=== PATIENT | female | born 1955 | race Caucasian/White ===

== ENCOUNTER 2024-05-16 20:29 | Inpatient (IN) | payer OTHER, MEDICAID ==
[~2024-05-16] VITALS: Ht 175.3 cm; Wt 101.0 kg
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
--- NOTE | 2024-05-17 00:08 | DVH ---
EXAM: CT LS SPINE WO CONTRAST HISTORY: FALL COMPARISON: None CTDIvol 39 mGy, DLP 1282 mGy*cm. TECHNIQUE: Multiple axial CT images of the spine were obtained using bone algorithm. Axial and coron al reformatting was done. Bone and soft tissue windows were reviewed. FINDINGS: Acute compression fracture of the L1 vertebral body. The visualized paraspinal soft tissues are gross ly unremarkable. Multilevel degenerative spondylosis manifesting as varying degrees of disc space narrowing, endplate sclerosis, and marginal osteophyte formation which is most prominent at the levels of L2-L3 and L4-L5 where it is moderate to severe. IMPRESSION: 1. Acute compression fracture of the L1 vertebral body. 2. Multilevel degenerative spondylosis, moderate to severe at L2-L3 and L4-L5
[2024-05-17 01:53] VITALS: PULSE 74; RESP 18; O2SAT 98
[2024-05-17] MEDS: ONDANSETRON HCL 4 MG/2 ML VIAL IV ONE (02:07)
[2024-05-17] MEDS: MORPHINE SULFATE 4 MG/ML SYR/VIAL IV ONE (02:08)
[2024-05-17 02:22] VITALS: PULSE 75; RESP 18; O2SAT 98
[2024-05-17 04:03] LABS: Urine Bacteria None Seen /hpf (None Seen)
[2024-05-17 04:20] LABS: Urine Blood Negative /uL (Negative); Urine Clarity Clear (Clear); Urine Color Light-Yellow (Yellow); Urine Protein, UAD Negative (Negative); Urine Squamous Epithelial Cell None Seen /hpf (<5); Urine Urobilinogen Normal (Negative); Urine WBC < 1 /HPF (0-5)
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
[2024-05-17 07:51] LABS: Basophils # (auto) 0 10 ^3/uL (0-0.2); Basophils % (auto) 0.3 % (0.0-2.0); Eosinophils # (auto) 0.1 10 ^3/uL (0-0.8); Eosinophils % (auto) 1.7 % (0.0-7.0); Hematocrit 40.1 % (36.0-46.0); Hemoglobin 13.5 g/dL (12.2-16.2); Lymphocytes # (auto) 1.2 10 ^3/uL (0.4-5.4); Lymphocytes % (auto) 17.4 % (10.0-50.0); Mean Corpuscular Hgb Conc. 33.5 g/dL (32.0-36.0); Mean Corpuscular Volume 89.5 fL (80.0-100.0); Monocytes # (auto) 0.6 10 ^3/uL (0-1.3); Neutrophils % (auto) 71.6 % (37.0-80.0); Nucleated Red Blood Cells % 0.1 %; Platelet Count (auto) 220 10^3/uL (140-450); Red Blood Cells 4.48 10^6/uL (4.0-5.20); Red Cell Distribution Width 13.9 % (11.8-14.3); White Blood Cell 6.9 10^3/uL (4.4-10.8)
[2024-05-17 08:19] VITALS: PULSE 74; RESP 13; O2SAT 93
[2024-05-17] MEDS: ENOXAPARIN SOD 30 MG/0.3 ML SYRINGE SC SCH ×2 (08:40→10:52)
[2024-05-17] MEDS: ONDANSETRON HCL 4 MG/2 ML VIAL IV PRN (08:46)
[2024-05-17] MEDS: SODIUM CHLORIDE 0.9% 1,000 ML IV SCH (08:46)
[2024-05-17] MEDS: MORPHINE SULFATE INJ 2 MG/ml SYRG IV PRN (08:48)
[2024-05-17 09:08] LABS: Alanine Aminotransferase 26 U/L (7-40); Alkaline Phosphatase 83 U/L (46-116); Calcium 9.4 mg/dL (8.7-10.4); Carbon Dioxide 26 mmol/L (20-31)
[2024-05-17 09:09] LABS: Albumin 3.9 g/dL (3.2-4.8); Anion Gap 8 (5-15); Aspartate Aminotransferase 23 U/L (13-40); BUN/Creatinine Ratio 17.1 (10.0-20.0); Blood Urea Nitrogen 14 mg/dL (9-23); Potassium 4.2 mmol/L (3.5-5.1); Sodium 141 mmol/L (136-145)
[2024-05-17 09:10] LABS: Total Protein 5.7 g/dL (5.7-8.2)
[2024-05-17 09:11] LABS: Chloride 107 mmol/L (98-107); Glucose 114 mg/dL (74-106)
[2024-05-17 09:26] LABS: Bilirubin, Total 0.9 mg/dL (0.2-1.0)
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
[2024-05-17] MEDS ORDERED: BUPR150T18 (18:36)
[2024-05-17] MEDS ORDERED: LOS25T (18:36)
[2024-05-17] MEDS ORDERED: DULO1CAP6 (18:36)
[2024-05-17] MEDS ORDERED: SIMV20TA20 (18:36)
[2024-05-17] MEDS ORDERED: ATEN50TA PO (18:36)
[2024-05-17] MEDS ORDERED: TRAZ-227 PO (18:36)
[2024-05-17 18:40] VITALS: BP 141/59; PULSE 77; RESP 94; TEMP 98.9; O2SAT 93
[2024-05-17 20:00] VITALS: PULSE 95; RESP 18; O2SAT 95
[2024-05-17 21:00] VITALS: BP 138/60; PULSE 79; RESP 20; TEMP 98.8; O2SAT 96
[2024-05-17] MEDS: ACETAMINOPHEN 325 MG TAB PO PRN (23:18)
[2024-05-18] VITALS (8 sets, daily range): BP systolic 129–175; BP diastolic 55–83; PULSE 63–72; RESP 18–20; TEMP 98.1–98.7; O2SAT 94–96
[2024-05-18 07:11] LABS: Basophils # (auto) 0 10 ^3/uL (0-0.2); Basophils % (auto) 0.3 % (0.0-2.0); Eosinophils # (auto) 0.1 10 ^3/uL (0-0.8); Eosinophils % (auto) 1.6 % (0.0-7.0); Hemoglobin 13.4 g/dL (12.2-16.2); Lymphocytes # (auto) 1.1 10 ^3/uL (0.4-5.4); Lymphocytes % (auto) 12.3 % (10.0-50.0); Mean Corpuscular Hemoglobin 30.5 pg (28.0-32.0); Mean Corpuscular Hgb Conc. 33.5 g/dL (32.0-36.0); Mean Corpuscular Volume 91.2 fL (80.0-100.0); Monocytes # (auto) 0.8 10 ^3/uL (0-1.3); Monocytes % (auto) 8.3 % (0.0-12.0); Neutrophils # (auto) 7.1 10 ^3/uL (1.6-8.6); Neutrophils % (auto) 77.5 % (37.0-80.0); Nucleated Red Blood Cells % 0.1 %; Platelet Count (auto) 191 10^3/uL (140-450); Red Blood Cells 4.39 10^6/uL (4.0-5.20); Red Cell Distribution Width 13.9 % (11.8-14.3); White Blood Cell 9.1 10^3/uL (4.4-10.8)
[2024-05-18 07:18] LABS: Alanine Aminotransferase 21 U/L (7-40); Albumin 3.9 g/dL (3.2-4.8); Alkaline Phosphatase 70 U/L (46-116); Anion Gap 8 (5-15); Aspartate Aminotransferase 21 U/L (13-40); Blood Urea Nitrogen 12 mg/dL (9-23); Calcium 9.5 mg/dL (8.7-10.4); Carbon Dioxide 29 mmol/L (20-31); Chloride 104 mmol/L (98-107); Glucose 99 mg/dL (74-106); Potassium 4.4 mmol/L (3.5-5.1); Sodium 141 mmol/L (136-145)
[2024-05-18 07:19] LABS: Total Protein 5.8 g/dL (5.7-8.2)
[2024-05-18] MEDS: HYDROcodone-ACET 5/325MG TAB PO PRN (11:47)
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
[2024-05-19] VITALS (8 sets, daily range): BP systolic 123–151; BP diastolic 63–73; PULSE 64–77; RESP 18–19; TEMP 97.8–98.7; O2SAT 92–96
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
[2024-05-20] VITALS (8 sets, daily range): BP systolic 130–155; BP diastolic 63–96; PULSE 63–82; RESP 16–20; TEMP 98–99.1; O2SAT 93–95
[2024-05-20] MEDS: OXYCODONE W/ ACETAMINOPHEN 5/325MG TABLET PO PRN (21:25)
[2024-05-21] VITALS (7 sets, daily range): BP systolic 54–154; BP diastolic 74–87; PULSE 60–74; RESP 16–20; TEMP 98–98.7; O2SAT 92–95
--- NOTE | 2024-05-21 14:27 | DVHPN2 ---
Subjective Still complains of back pain She worked with Physical therapy somewhat Reviewed: Care Plan Changes from previous H/P or p: Changes General: Per HPI Eyes: No Pain, No Vision change, No Conjunctivae inflammation, No Eyelid inflammation, No Other, No Redness ENT: No Ear pain, No Ear discharge, No Nose pain, No Nose discharge, No Nose congestion, No Mouth pain, No Mouth swelling, No Throat pain, No Throat swelling, No Other Cardiovascular: No Chest Pain, No Palpitations, No Orthopnea, No Paroxysmal Noc. Dyspnea, No Edema, No Lt Headedness, No Other Respiratory: No Cough, No Dry, No Shortness of breath, No SOB with excertion, No Wheezing, No Hemoptysis, No Pleuritic Pain, No Sputum, No Other Gastrointestinal: No Nausea, No Vomiting, No Abdominal Pain, No Diarrhea, No Constipation, No Melena, No Hematochezia, No Other Genitourinary: No Dysuria, No Frequency, No Incontinence, No Hematuria, No Retention, No Other Musculoskeletal: No other, No neck pain, No shoulder pain, No arm pain; back pain; No hand pain, No leg pain, No foot pain Skin: No Rash, No Lesions, No Jaundice, No Bruising, No Other Objective Vitals Vital Signs Date Time Temp Pulse Resp B/P (MAP) Pulse Ox O2 Delivery O2 Flow Rate FiO2 05/21/24 13:00 98.2 60 16 126/80 (95) 92 98.2 05/21/24 08:00 Nasal Cannula* 2 28 Intake/Output Intake and Output 05/21/24 07:00 Intake Total 1910 ml Output Total 2200 ml Balance -290 ml Intake Oral 1910 ml Output Urine Total 2200 ml Stool Total 0 ml General Appearance: Alert, Oriented X3, Cooperative HEENT: Atraumatic Cardiovascular: Regular rate, Normal S1, Normal S2 Abdomen: Normal bowel sounds, Soft Neuro: Normal speech Medications Current Medications Medications Dose Ordered Sig/Sid Route Start Time Stop Time Status Last Admin Dose Admin Sodium Chloride 1,000 ml @ 70 mls/hr [id number] IV 05/17/24 07:30 05/21/24 11:02 70 MLS/HR Acetaminophen/ Hydrocodone Bitart 1 tab Q4HP PRN PO 05/17/24 07:30 05/21/24 09:39 1 TAB Ondansetron HCl 4 mg Q4HP PRN IV 05/17/24 07:30 05/17/24 08:46 4 MG Acetaminophen 650 mg Q6HP PRN PO 05/17/24 07:30 05/19/24 17:55 650 MG Morphine Sulfate 2 mg Q4HPRN PRN IV 05/17/24 07:30 05/19/24 15:52 2 MG Enoxaparin Sodium 30 mg DAILY@1100 SC 05/17/24 11:00 05/21/24 11:00 30 MG Oxycodone/ Acetaminophen 2 tab Q6HP PRN PO 05/20/24 15:45 05/21/24 06:27 2 TAB Laboratory Results Laboratory Tests 05/18/24 04:47 Urinalysis Test 05/17/24 03:00 Urine Color Light-yellow (Yellow) Urine Clarity Clear (Clear) Urine pH 6.0 (5.0-9.0) Urine Specific [place] 1.010 (1.001-1.035) Urine Protein Negative (Negative) Urine Ketones Negative (Negative) Urine Blood Negative /uL (Negative) Urine Nitrite Negative (Negative) Urine Bilirubin Negative (Negative) Urine Urobilinogen Normal mg/dL (Negative) Urine Leukocyte Esterase Negative /uL (Negative) Urine RBC 3 /hpf (0 - 4) Urine Microscopic WBC < 1 /HPF (0-5) Urine Squamous Epithelial Cells None seen /hpf (<5) Urine Bacteria None seen /hpf (None Seen) Urine Glucose Normal mg/dL (Normal) Assessment/Plan Assessment/Plan Acute compression fracture of the L1 due to a fall Hypertension Mixed hyperlipidemia Degenerative joint disease of the lumbar spine Obesity Plan Continue pain management Continue physical therapy Use the brace with activity Discharge planning Order home health in a front wheel walker Discontinue the IV fluids Monitor closely Full code Plan of care was discussed for 17 minutes Plan discussed with: Patient Date of Service: May 21, 2024 Billing Provider: ALICJA TREVINO MD Common Visit Codes: [id number] INP/OBS CARE(HIGH) Secondary Visit Codes: [id number] CARE PLAN 30 MINUTES ALICJA TREVINO MD May 21, 2024 14:27
[2024-05-22] VITALS (7 sets, daily range): BP systolic 134–158; BP diastolic 71–86; PULSE 64–79; RESP 16–19; TEMP 97.4–98.6; O2SAT 90–96
--- NOTE | 2024-05-22 11:04 | DVHPN2 ---
Subjective Complains of severe back pain limiting her movement and activities Reviewed: Care Plan Changes from previous H/P or p: Changes General: Per HPI Eyes: No Pain, No Vision change, No Conjunctivae inflammation, No Eyelid inflammation, No Other, No Redness ENT: No Ear pain, No Ear discharge, No Nose pain, No Nose discharge, No Nose congestion, No Mouth pain, No Mouth swelling, No Throat pain, No Throat swelling, No Other Cardiovascular: No Chest Pain, No Palpitations, No Orthopnea, No Paroxysmal Noc. Dyspnea, No Edema, No Lt Headedness, No Other Respiratory: No Cough, No Dry, No Shortness of breath, No SOB with excertion, No Wheezing, No Hemoptysis, No Pleuritic Pain, No Sputum, No Other Gastrointestinal: No Nausea, No Vomiting, No Abdominal Pain, No Diarrhea, No Constipation, No Melena, No Hematochezia, No Other Genitourinary: No Dysuria, No Frequency, No Incontinence, No Hematuria, No Retention, No Other Musculoskeletal: No other, No neck pain, No shoulder pain, No arm pain; back pain; No hand pain, No leg pain, No foot pain Skin: No Rash, No Lesions, No Jaundice, No Bruising, No Other Objective Vitals Vital Signs Date Time Temp Pulse Resp B/P (MAP) Pulse Ox O2 Delivery O2 Flow Rate FiO2 05/22/24 09:00 97.9 71 19 153/85 (107) 96 97.9 05/22/24 08:00 Nasal Cannula* 2 28 Intake/Output Intake and Output 05/22/24 07:00 Intake Total 3060 ml Output Total 728 ml Balance 2332 ml Intake Oral 3060 ml Output Urine Total 727 ml Stool Total 1 ml General Appearance: Alert, Oriented X3, Cooperative HEENT: Atraumatic Cardiovascular: Regular rate, Normal S1, Normal S2 Abdomen: Normal bowel sounds, Soft Neuro: Normal speech Medications Current Medications Medications Dose Ordered Sig/Sid Route Start Time Stop Time Status Last Admin Dose Admin Acetaminophen/ Hydrocodone Bitart 1 tab Q4HP PRN PO 05/17/24 07:30 05/21/24 09:39 1 TAB Ondansetron HCl 4 mg Q4HP PRN IV 05/17/24 07:30 05/17/24 08:46 4 MG Acetaminophen 650 mg Q6HP PRN PO 05/17/24 07:30 05/19/24 17:55 650 MG Enoxaparin Sodium 30 mg DAILY@1100 SC 05/17/24 11:00 05/22/24 09:38 30 MG Oxycodone/ Acetaminophen 2 tab Q6HP PRN PO 05/20/24 15:45 05/22/24 09:37 2 TAB Laboratory Results Laboratory Tests 05/18/24 04:47 Urinalysis Test 05/17/24 03:00 Urine Color Light-yellow (Yellow) Urine Clarity Clear (Clear) Urine pH 6.0 (5.0-9.0) Urine Specific [place] 1.010 (1.001-1.035) Urine Protein Negative (Negative) Urine Ketones Negative (Negative) Urine Blood Negative /uL (Negative) Urine Nitrite Negative (Negative) Urine Bilirubin Negative (Negative) Urine Urobilinogen Normal mg/dL (Negative) Urine Leukocyte Esterase Negative /uL (Negative) Urine RBC 3 /hpf (0 - 4) Urine Microscopic WBC < 1 /HPF (0-5) Urine Squamous Epithelial Cells None seen /hpf (<5) Urine Bacteria None seen /hpf (None Seen) Urine Glucose Normal mg/dL (Normal) Assessment/Plan Assessment/Plan Acute compression fracture of the L1 due to a fall Hypertension Mixed hyperlipidemia Degenerative joint disease of the lumbar spine Obesity Plan Continue pain management Continue physical therapy Use the brace with activity Discharge planning Order home health in a front wheel walker Discontinue the IV fluids Monitor closely Full code Plan of care was discussed for 17 minutes 05/22/2024: Continue pain management with the Percocet and morphine as needed Add NSAIDs ibuprofen 600 mg tid with meals Give 1 dose of Toradol IV now The patient has a brace to be used with physical therapy Continue physical therapy The patient is not stable to go home yet Plan discussed with: Patient, Spouse My Orders Orders - ALICJA TREVINO MD Procedure Category Date Status Time * [employer] CONS 05/21/24 Transmitted Consult Date of Service: May 22, 2024 Billing Provider: ALICJA TREVINO MD Common Visit Codes: [id number] INP/OBS CARE(HIGH) ALICJA TREVINO MD May 22, 2024 11:03
[2024-05-22] MEDS: KETOROLAC TROMETH 30 MG/ML 1ML VIAL IV ONE (13:01)
[2024-05-22] MEDS: FAMOTIDINE 20 MG TAB PO ONE (13:01)
[2024-05-22] MEDS: FAMOTIDINE 20 MG TAB PO SCH (22:52)
[2024-05-22] MEDS: IBUPROFEN 600 MG TAB PO SCH (22:53)
[2024-05-23] VITALS (8 sets, daily range): BP systolic 136–172; BP diastolic 66–97; PULSE 60–82; RESP 8–18; TEMP 97.2–98.8; O2SAT 92–97
[2024-05-23 06:35] LABS: Alanine Aminotransferase 29 U/L (7-40); Alkaline Phosphatase 69 U/L (46-116); Anion Gap 10 (5-15); Aspartate Aminotransferase 34 U/L (13-40); BUN/Creatinine Ratio 22.1 (10.0-20.0); Blood Urea Nitrogen 19 mg/dL (9-23); Calcium 10.1 mg/dL (8.7-10.4); Carbon Dioxide 26 mmol/L (20-31); Chloride 107 mmol/L (98-107); Glucose 104 mg/dL (74-106); Potassium 3.9 mmol/L (3.5-5.1); Sodium 143 mmol/L (136-145)
[2024-05-23 06:36] LABS: Bilirubin, Total 0.7 mg/dL (0.2-1.0); Total Protein 6.1 g/dL (5.7-8.2)
[2024-05-23 06:37] LABS: Basophils # (auto) 0 10 ^3/uL (0-0.2); Basophils % (auto) 0.8 % (0.0-2.0); Eosinophils # (auto) 0.3 10 ^3/uL (0-0.8); Eosinophils % (auto) 5.1 % (0.0-7.0); Hematocrit 42.1 % (36.0-46.0); Lymphocytes # (auto) 1.6 10 ^3/uL (0.4-5.4); Lymphocytes % (auto) 26.6 % (10.0-50.0); Mean Corpuscular Hemoglobin 30.1 pg (28.0-32.0); Mean Corpuscular Hgb Conc. 33.4 g/dL (32.0-36.0); Mean Corpuscular Volume 90.2 fL (80.0-100.0); Monocytes # (auto) 0.7 10 ^3/uL (0-1.3); Monocytes % (auto) 11.7 % (0.0-12.0); Neutrophils # (auto) 3.4 10 ^3/uL (1.6-8.6); Neutrophils % (auto) 55.8 % (37.0-80.0); Nucleated Red Blood Cells % 0.1 %; Platelet Count (auto) 249 10^3/uL (140-450); Red Blood Cells 4.67 10^6/uL (4.0-5.20); Red Cell Distribution Width 14.1 % (11.8-14.3)
--- NOTE | 2024-05-23 11:29 | DVHPN2 ---
Subjective She is somewhat more comfortable today Blood pressure is elevated She has not been ambulating yet Reviewed: Care Plan Changes from previous H/P or p: Changes General: Per HPI Eyes: No Pain, No Vision change, No Conjunctivae inflammation, No Eyelid inflammation, No Other, No Redness ENT: No Ear pain, No Ear discharge, No Nose pain, No Nose discharge, No Nose congestion, No Mouth pain, No Mouth swelling, No Throat pain, No Throat swelling, No Other Cardiovascular: No Chest Pain, No Palpitations, No Orthopnea, No Paroxysmal Noc. Dyspnea, No Edema, No Lt Headedness, No Other Respiratory: No Cough, No Dry, No Shortness of breath, No SOB with excertion, No Wheezing, No Hemoptysis, No Pleuritic Pain, No Sputum, No Other Gastrointestinal: No Nausea, No Vomiting, No Abdominal Pain, No Diarrhea, No Constipation, No Melena, No Hematochezia, No Other Genitourinary: No Dysuria, No Frequency, No Incontinence, No Hematuria, No Retention, No Other Musculoskeletal: No other, No neck pain, No shoulder pain, No arm pain; back pain; No hand pain, No leg pain, No foot pain Skin: No Rash, No Lesions, No Jaundice, No Bruising, No Other Objective Vitals Vital Signs Date Time Temp Pulse Resp B/P (MAP) Pulse Ox O2 Delivery O2 Flow Rate FiO2 05/23/24 09:00 97.6 63 18 163/89 (113) 96 97.6 05/22/24 20:00 Nasal Cannula* 2 28 Intake/Output Intake and Output 05/23/24 07:00 Intake Total 230 ml Output Total 400 ml Balance -170 ml Intake Oral 230 ml Output Urine Total 400 ml General Appearance: Alert, Oriented X3, Cooperative HEENT: Atraumatic Cardiovascular: Regular rate, Normal S1, Normal S2 Abdomen: Normal bowel sounds, Soft Neuro: Normal speech Medications Current Medications Medications Dose Ordered Sig/Sid Route Start Time Stop Time Status Last Admin Dose Admin Acetaminophen/ Hydrocodone Bitart 1 tab Q4HP PRN PO 05/17/24 07:30 05/21/24 09:39 1 TAB Ondansetron HCl 4 mg Q4HP PRN IV 05/17/24 07:30 05/17/24 08:46 4 MG Acetaminophen 650 mg Q6HP PRN PO 05/17/24 07:30 05/19/24 17:55 650 MG Enoxaparin Sodium 30 mg DAILY@1100 SC 05/17/24 11:00 05/23/24 10:26 30 MG Oxycodone/ Acetaminophen 2 tab Q6HP PRN PO 05/20/24 15:45 05/23/24 10:25 2 TAB Ibuprofen 600 mg TID PO 05/22/24 22:00 05/23/24 06:17 600 MG Famotidine 20 mg Q12HR PO 05/22/24 22:00 05/23/24 10:27 20 MG Laboratory Results Laboratory Tests 05/23/24 05:14 Chemistry Test 05/23/24 05:14 Albumin 4.0 g/dL (3.2-4.8) Calcium Level 10.1 mg/dL (8.7-10.4) Magnesium Level 2.0 mg/dL (1.6-2.6) Total Protein 6.1 g/dL (5.7-8.2) LFT Test 05/23/24 05:14 Alanine Aminotransferase (ALT) 29 U/L (7-40) Alkaline Phosphatase 69 U/L (46-116) Aspartate Amino Transferase (AST) 34 U/L (13-40) Total Bilirubin 0.7 mg/dL (0.2-1.0) Urinalysis Test 05/17/24 03:00 Urine Color Light-yellow (Yellow) Urine Clarity Clear (Clear) Urine pH 6.0 (5.0-9.0) Urine Specific [place] 1.010 (1.001-1.035) Urine Protein Negative (Negative) Urine Ketones Negative (Negative) Urine Blood Negative /uL (Negative) Urine Nitrite Negative (Negative) Urine Bilirubin Negative (Negative) Urine Urobilinogen Normal mg/dL (Negative) Urine Leukocyte Esterase Negative /uL (Negative) Urine RBC 3 /hpf (0 - 4) Urine Microscopic WBC < 1 /HPF (0-5) Urine Squamous Epithelial Cells None seen /hpf (<5) Urine Bacteria None seen /hpf (None Seen) Urine Glucose Normal mg/dL (Normal) Assessment/Plan Assessment/Plan Acute compression fracture of the L1 due to a fall Hypertension Mixed hyperlipidemia Degenerative joint disease of the lumbar spine Obesity Plan Continue pain management Continue physical therapy Use the brace with activity Discharge planning Order home health in a front wheel walker Discontinue the IV fluids Monitor closely Full code Plan of care was discussed for 17 minutes 05/22/2024: Continue pain management with the Percocet and morphine as needed Add NSAIDs ibuprofen 600 mg tid with meals Give 1 dose of Toradol IV now The patient has a brace to be used with physical therapy Continue physical therapy The patient is not stable to go home yet 05/23/2024: Continue the current management for pain with Percocet as needed and ibuprofen Physical therapy to ambulate the patient today with a brace Resume her home medications atenolol and losartan and Cymbalta and Wellbutrin Discharge planning once the patient is ambulatory Plan discussed with: Patient My Orders Orders - ALICJA TREVINO MD Procedure Category Date Status Time Losartan Tablet PHA 05/24/24 Verified (Cozaar Tablet) 10:00 Losartan Tablet PHA 05/23/24 Verified (Cozaar Tablet) 11:30 Atenolol Tablet PHA 05/23/24 Verified (Tenormin Tablet) 11:30 Atenolol Tablet PHA 05/24/24 Verified (Tenormin Tablet) 10:00 Bupropion Tablet PHA 05/23/24 Verified (Wellbutrin Tablet) 11:30 Bupropion Tablet PHA 05/23/24 Verified (Wellbutrin Tablet) 19:00 Acyclovir Tablet PHA 05/23/24 Verified (Zovirax Tablet) 11:30 Acyclovir Tablet PHA 05/24/24 Verified (Zovirax Tablet) 10:00 Date of Service: May 23, 2024 Billing Provider: ALICJA TREVINO MD Common Visit Codes: [id number] INP/OBS CARE(HIGH) ALICJA TREVINO MD May 23, 2024 11:29
[2024-05-23] MEDS: ATENOLOL 25 MG TAB PO ONE (11:30)
[2024-05-23] MEDS: buPROPion HCL 75 MG TAB PO ONE (16:18)
[2024-05-23] MEDS: ACYCLOVIR 400 MG TAB PO ONE (16:18)
[2024-05-23] MEDS: LOSARTAN POTASSIUM 25 MG TAB PO ONE (16:38)
[2024-05-24] VITALS (8 sets, daily range): BP systolic 125–162; BP diastolic 66–88; PULSE 54–91; RESP 16–18; TEMP 97.9–98.7; O2SAT 94–99
[2024-05-24] MEDS: buPROPion HCL 75 MG TAB PO SCH (06:57)
[2024-05-24] MEDS: ACYCLOVIR 400 MG TAB PO SCH (09:23)
[2024-05-24] MEDS: LOSARTAN POTASSIUM 25 MG TAB PO SCH (09:27)
[2024-05-24] MEDS: ATENOLOL 25 MG TAB PO SCH (09:27)
--- NOTE | 2024-05-24 11:38 | DVHPN2 ---
Subjective Back pain is somewhat better She had hematuria yesterday She said she has kidney stones in both kidneys and usually she gets hematuria and then she would need surgery for them because usually she can not the pass them Reviewed: Care Plan Changes from previous H/P or p: Changes General: Per HPI Eyes: No Pain, No Vision change, No Conjunctivae inflammation, No Eyelid inflammation, No Other, No Redness ENT: No Ear pain, No Ear discharge, No Nose pain, No Nose discharge, No Nose congestion, No Mouth pain, No Mouth swelling, No Throat pain, No Throat swelling, No Other Cardiovascular: No Chest Pain, No Palpitations, No Orthopnea, No Paroxysmal Noc. Dyspnea, No Edema, No Lt Headedness, No Other Respiratory: No Cough, No Dry, No Shortness of breath, No SOB with excertion, No Wheezing, No Hemoptysis, No Pleuritic Pain, No Sputum, No Other Gastrointestinal: No Nausea, No Vomiting, No Abdominal Pain, No Diarrhea, No Constipation, No Melena, No Hematochezia, No Other Genitourinary: No Dysuria, No Frequency, No Incontinence, No Hematuria, No Retention, No Other Musculoskeletal: No other, No neck pain, No shoulder pain, No arm pain; back pain; No hand pain, No leg pain, No foot pain Skin: No Rash, No Lesions, No Jaundice, No Bruising, No Other Objective Vitals Vital Signs Date Time Temp Pulse Resp B/P (MAP) Pulse Ox O2 Delivery O2 Flow Rate FiO2 05/24/24 09:27 62 147/78 05/24/24 09:00 98.5 16 95 98.5 05/24/24 08:00 Room Air* 0 21 Intake/Output Intake and Output 05/24/24 07:00 Intake Total 470 ml Output Total 700 ml Balance -230 ml Intake Oral 470 ml Output Urine Total 700 ml # Bowel Movements 1 General Appearance: Alert, Oriented X3, Cooperative HEENT: Atraumatic Cardiovascular: Regular rate, Normal S1, Normal S2 Abdomen: Normal bowel sounds, Soft Neuro: Normal speech Medications Current Medications Medications Dose Ordered Sig/Sid Route Start Time Stop Time Status Last Admin Dose Admin Acetaminophen/ Hydrocodone Bitart 1 tab Q4HP PRN PO 05/17/24 07:30 05/23/24 21:22 1 TAB Ondansetron HCl 4 mg Q4HP PRN IV 05/17/24 07:30 05/17/24 08:46 4 MG Acetaminophen 650 mg Q6HP PRN PO 05/17/24 07:30 05/19/24 17:55 650 MG Enoxaparin Sodium 30 mg DAILY@1100 SC 05/17/24 11:00 05/24/24 10:57 30 MG Oxycodone/ Acetaminophen 2 tab Q6HP PRN PO 05/20/24 15:45 05/24/24 10:58 2 TAB Ibuprofen 600 mg TID PO 05/22/24 22:00 05/24/24 06:55 600 MG Famotidine 20 mg Q12HR PO 05/22/24 22:00 05/24/24 09:23 20 MG Losartan Potassium 25 mg DAILY PO 05/24/24 10:00 05/24/24 09:27 25 MG Atenolol 50 mg DAILY PO 05/24/24 10:00 05/24/24 09:27 50 MG Bupropion HCl 75 mg BID@07,19 PO 05/24/24 07:00 05/24/24 06:57 75 MG Acyclovir 400 mg DAILY PO 05/24/24 10:00 05/24/24 09:23 400 MG Laboratory Results Laboratory Tests 05/23/24 05:14 Urinalysis Test 05/17/24 03:00 Urine Color Light-yellow (Yellow) Urine Clarity Clear (Clear) Urine pH 6.0 (5.0-9.0) Urine Specific [place] 1.010 (1.001-1.035) Urine Protein Negative (Negative) Urine Ketones Negative (Negative) Urine Blood Negative /uL (Negative) Urine Nitrite Negative (Negative) Urine Bilirubin Negative (Negative) Urine Urobilinogen Normal mg/dL (Negative) Urine Leukocyte Esterase Negative /uL (Negative) Urine RBC 3 /hpf (0 - 4) Urine Microscopic WBC < 1 /HPF (0-5) Urine Squamous Epithelial Cells None seen /hpf (<5) Urine Bacteria None seen /hpf (None Seen) Urine Glucose Normal mg/dL (Normal) Assessment/Plan Assessment/Plan Acute compression fracture of the L1 due to a fall Hypertension Mixed hyperlipidemia Degenerative joint disease of the lumbar spine Obesity Plan Continue pain management Continue physical therapy Use the brace with activity Discharge planning Order home health in a front wheel walker Discontinue the IV fluids Monitor closely Full code Plan of care was discussed for 17 minutes 05/22/2024: Continue pain management with the Percocet and morphine as needed Add NSAIDs ibuprofen 600 mg tid with meals Give 1 dose of Toradol IV now The patient has a brace to be used with physical therapy Continue physical therapy The patient is not stable to go home yet 05/23/2024: Continue the current management for pain with Percocet as needed and ibuprofen Physical therapy to ambulate the patient today with a brace Resume her home medications atenolol and losartan and Cymbalta and Wellbutrin Discharge planning once the patient is ambulatory 05/24/2024: Continue the current management for the back pain and physical therapy with the brace Hematuria: Check the CT scan of the abdomen and pelvis to rule out kidney stones The patient is still having significant pain and she is not able to move independently, she needs significant help with her activities and therefore she will need to go to SNF Arrange SNF for rehab and pain management Plan discussed with: Patient My Orders Orders - ALICJA TREVINO MD Procedure Category Date Status Time Ct Ab Pel Wo Con-No CT 05/24/24 Transmitted Oral Or Iv 11:36 Date of Service: May 24, 2024 Billing Provider: ALICJA TREVINO MD Common Visit Codes: [id number] INP/OBS CARE(HIGH) ALICJA TREVINO MD May 24, 2024 11:38
--- NOTE | 2024-05-24 12:39 | DVH ---
CT abdomen and pelvis without contrast INDICATION: kidney stones TECHNIQUE: Serial axial images were performed through the abdomen and pelvis and then reformatted in the sagittal and coronal plane. All CT scans at this medical facility are performed using dose modula tion techniques as appropriate to a performed exam including the following: Automated exposure contro l was utilized; adjustment of the MA and/or KvP according to patient size; and use of iterative recon struction technique. FINDINGS: Liver and spleen are normal in size without focal mass. There is a 4 mm stone in the right kidney. This is adjacent to a 2.8 cm cyst. There is a 2.4 cm cyst in the left kidney. No hydronephrosis. No masses or enlargement of the adrenal glands or pancreas. Gallbladder distended. No biliary dilatation. No gallstones. No distention of bowel loops to suggest mechanical obstruction of bowel. No free fluid. Within the pelvis, bladder is smooth walled without stones. Small calcified uterine fibroids. Morales c atheter in the urinary bladder. Degenerative changes in the spine IMPRESSION: 1. There is a 4 mm nonobstructive calculus in the right kidney. Bilateral renal cysts. Computed Tomographic Radiation Dosimetry Report: Total CTDI vol = 25.02mGy Total DLP = 1176.29mGy-cm Low dose protocols were performed.
[2024-05-25 05:00] VITALS: BP 135/69; PULSE 58; RESP 18; TEMP 97.4; O2SAT 95
[2024-05-25 09:00] VITALS: BP 146/76; PULSE 59; RESP 16; TEMP 98.5; O2SAT 94
[2024-05-25 13:00] VITALS: BP 144/72; PULSE 54; RESP 20; TEMP 98.4; O2SAT 96
[2024-05-25 16:33] VITALS: BP 138/78; PULSE 64; RESP 18; TEMP 98.6; O2SAT 96
--- NOTE | 2024-05-25 20:29 | DVHPN2 ---
Subjective Better No hematuria CT: 4 mm R kidney stone Reviewed: Care Plan Changes from previous H/P or p: Changes General: Per HPI Eyes: No Pain, No Vision change, No Conjunctivae inflammation, No Eyelid inflammation, No Other, No Redness ENT: No Ear pain, No Ear discharge, No Nose pain, No Nose discharge, No Nose congestion, No Mouth pain, No Mouth swelling, No Throat pain, No Throat swelling, No Other Cardiovascular: No Chest Pain, No Palpitations, No Orthopnea, No Paroxysmal Noc. Dyspnea, No Edema, No Lt Headedness, No Other Respiratory: No Cough, No Dry, No Shortness of breath, No SOB with excertion, No Wheezing, No Hemoptysis, No Pleuritic Pain, No Sputum, No Other Gastrointestinal: No Nausea, No Vomiting, No Abdominal Pain, No Diarrhea, No Constipation, No Melena, No Hematochezia, No Other Genitourinary: No Dysuria, No Frequency, No Incontinence, No Hematuria, No Retention, No Other Musculoskeletal: No other, No neck pain, No shoulder pain, No arm pain; back pain; No hand pain, No leg pain, No foot pain Skin: No Rash, No Lesions, No Jaundice, No Bruising, No Other Objective Vitals Vital Signs Date Time Temp Pulse Resp B/P (MAP) Pulse Ox O2 Delivery O2 Flow Rate FiO2 05/25/24 16:33 98.6 64 18 138/78 (98) 96 98.6 05/25/24 08:00 Room Air* 0 21 Intake/Output Intake and Output 05/25/24 07:00 Intake Total 2000 ml Output Total 1050 ml Balance 950 ml Intake Oral 2000 ml Output Urine Total 1050 ml General Appearance: Alert, Oriented X3, Cooperative HEENT: Atraumatic Cardiovascular: Regular rate, Normal S1, Normal S2 Abdomen: Normal bowel sounds, Soft Neuro: Normal speech Medications Current Medications Medications Dose Ordered Sig/Sid Route Start Time Stop Time Status Last Admin Dose Admin Acetaminophen/ Hydrocodone Bitart 1 tab Q4HP PRN PO 05/17/24 07:30 05/23/24 21:22 1 TAB Ondansetron HCl 4 mg Q4HP PRN IV 05/17/24 07:30 05/17/24 08:46 4 MG Acetaminophen 650 mg Q6HP PRN PO 05/17/24 07:30 05/19/24 17:55 650 MG Enoxaparin Sodium 30 mg DAILY@1100 SC 05/17/24 11:00 05/25/24 13:05 30 MG Oxycodone/ Acetaminophen 2 tab Q6HP PRN PO 05/20/24 15:45 05/25/24 15:26 2 TAB Ibuprofen 600 mg TID PO 05/22/24 22:00 05/25/24 14:17 600 MG Famotidine 20 mg Q12HR PO 05/22/24 22:00 05/25/24 10:05 20 MG Losartan Potassium 25 mg DAILY PO 05/24/24 10:00 05/25/24 10:04 25 MG Atenolol 50 mg DAILY PO 05/24/24 10:00 05/24/24 09:27 50 MG Bupropion HCl 75 mg BID@07,19 PO 05/24/24 07:00 05/25/24 18:08 75 MG Acyclovir 400 mg DAILY PO 05/24/24 10:00 05/25/24 10:04 400 MG Laboratory Results Laboratory Tests 05/23/24 05:14 Urinalysis Test 05/17/24 03:00 Urine Color Light-yellow (Yellow) Urine Clarity Clear (Clear) Urine pH 6.0 (5.0-9.0) Urine Specific [place] 1.010 (1.001-1.035) Urine Protein Negative (Negative) Urine Ketones Negative (Negative) Urine Blood Negative /uL (Negative) Urine Nitrite Negative (Negative) Urine Bilirubin Negative (Negative) Urine Urobilinogen Normal mg/dL (Negative) Urine Leukocyte Esterase Negative /uL (Negative) Urine RBC 3 /hpf (0 - 4) Urine Microscopic WBC < 1 /HPF (0-5) Urine Squamous Epithelial Cells None seen /hpf (<5) Urine Bacteria None seen /hpf (None Seen) Urine Glucose Normal mg/dL (Normal) Assessment/Plan Assessment/Plan Acute compression fracture of the L1 due to a fall Hypertension Mixed hyperlipidemia Degenerative joint disease of the lumbar spine Obesity Plan Continue pain management Continue physical therapy Use the brace with activity Discharge planning Order home health in a front wheel walker Discontinue the IV fluids Monitor closely Full code Plan of care was discussed for 17 minutes 05/22/2024: Continue pain management with the Percocet and morphine as needed Add NSAIDs ibuprofen 600 mg tid with meals Give 1 dose of Toradol IV now The patient has a brace to be used with physical therapy Continue physical therapy The patient is not stable to go home yet 05/23/2024: Continue the current management for pain with Percocet as needed and ibuprofen Physical therapy to ambulate the patient today with a brace Resume her home medications atenolol and losartan and Cymbalta and Wellbutrin Discharge planning once the patient is ambulatory 05/24/2024: Continue the current management for the back pain and physical therapy with the brace Hematuria: Check the CT scan of the abdomen and pelvis to rule out kidney stones The patient is still having significant pain and she is not able to move independently, she needs significant help with her activities and therefore she will need to go to SNF Arrange SNF for rehab and pain management 05/25/24: L1 Fx: R renal stone 4 mm Out of bed prn Plan to send to SNF in am Plan discussed with: Patient Date of Service: May 25, 2024 Billing Provider: ALICJA TREVINO MD Common Visit Codes: [id number] INP/OBS CARE(HIGH) ALICJA TREVINO MD May 25, 2024 20:29
[2024-05-25 21:00] VITALS: BP 147/71; PULSE 63; RESP 18; TEMP 98.4; O2SAT 94
[2024-05-26 05:00] VITALS: BP 121/68; PULSE 69; RESP 18; TEMP 98.2; O2SAT 96
[2024-05-26 09:00] VITALS: BP 146/80; PULSE 63; RESP 16; TEMP 98.1; O2SAT 91
[2024-05-26 13:00] VITALS: BP 160/86; PULSE 59; RESP 18; TEMP 97.9; O2SAT 96
[2024-05-26 14:55] VITALS: BP 146/80; PULSE 63; TEMP 36.6
== END 2024-05-26 17:16 | disposition home or self-care (01) | DRG 552 ==
LOC: EDBD 20:29 → ER 20:29 → OVERFLOW 05-17 07:19 → WEST WING 05-17 18:42
PROVIDERS: ADMIT Internal Medicine Geriatric Medicine; ATTEND Internal Medicine Geriatric Medicine
DX: S32.019A Unspecified fracture of first lumbar vertebra, initial encounter for closed fracture (principal); I10 Essential (primary) hypertension; M79.7 Fibromyalgia; E78.5 Hyperlipidemia, unspecified; W18.39XA Other fall on same level, initial encounter; E66.9 Obesity, unspecified; E78.2 Mixed hyperlipidemia; M47.816 Spondylosis without myelopathy or radiculopathy, lumbar region; Z88.2 Allergy status to sulfonamides; Z91.041 Radiographic dye allergy status; Z83.3 Family history of diabetes mellitus; Z98.891 History of uterine scar from previous surgery; Z79.899 Other long term (current) drug therapy; Y93.89 Activity, other specified; Y92.89 Other specified places as the place of occurrence of the external cause; Y99.8 Other external cause status; Z88.8 Allergy status to other drugs, medicaments and biological substances; Z68.33 Body mass index [BMI] 33.0-33.9, adult
CPT/HCPCS: 36415; 72131; 74176; 80053; 81001; 83735; 85025; 96361; 96374; 96375; 96376; 97110; 97116; 97163; 97530; G0378; J1885; J2405